=== PATIENT | female | born 1990 | race Caucasian/White ===

== ENCOUNTER 2023-11-03 08:27 | Outpatient (REF) | payer SELFPAY ==
[2023-11-04 11:27] LABS: Syphilis Serology (RPR) Negative (Negative)
== END 2023-11-03 08:28 | disposition home or self-care (01) ==
LOC: NCHCN 08:27
PROVIDERS: Visit Provider Physician Assistant
DX: Z11.59 Encounter for screening for other viral diseases (principal)
CPT/HCPCS: 86592